=== PATIENT | female | born 2000 | race Caucasian/White ===

== ENCOUNTER 2020-05-28 11:23 | Inpatient (IN) | payer OTHER ==
[~2020-05-28] VITALS: Ht 172.7 cm; Wt 59.4 kg
--- NOTE | 2020-05-28 17:01 | PR ---
[facility] [address] [facility] [place], [place] [address] Signed Progress Notes IP Datetime Report Generated by CPN: 05/28/2020 17:01 PROGRESS NOTES: [id number] Impression: Normal Progression of Labor; Reassuring Heart Rate Procedures: Artificial ROM; Sterile Vag Exam Plan: Continue Present Management; Anticipate Vaginal Delivery Informed Consent Obtain: Vaginal Delivery VITAL SIGNS: [id number] Vital Signs: Reviewed; Within Normal Limits EXAM: [id number] Dilatation: 8.0 Effacement: 90 Station: 0 Contractions: q 3 minutes MEMBRANES: [id number] Comments: Pt seen and examined. Doing well. +FM. Contractions uncomfortable. Discussed AROM and AROM performed without any difficulty. Anticipate soon. Pt declines epidural FETUS A: [id number] FHR Baseline: 130 Variability: Moderate 6-25bpm Accelerations: 15X15 Decelerations: None FHR Category: Category I Presentation: Vertex Comments on Fetus A: No evidence of metabolic acidosis FETUS B: [id number] Signing Physician: Nelia Velasquez DO Copies: ~ *Electronically Signed* 05/28/20 3248 NELIA VELASQUEZ DO PATIENT NAME: VIRGILIO BLACK PROGRESS NOTE DATE OF : 89 PHYSICIAN: NELIA VELASQUEZ DO RPT #: [id number] REPORT IS CONFIDENTIAL AND NOT TO BE RELEASED WITHOUT AUTHORIZATION
[2020-05-28] MEDS ORDERED: BUPRENORPHINE HC8 MG (19:42)
[2020-05-28] MEDS ORDERED: IRON325 M1 (19:43)
[2020-05-28] MEDS ORDERED: ONDANSETRON ODT8 MG (19:43)
[2020-05-28] MEDS ORDERED: PROMETHAZINE12.5 M1 (19:43)
--- NOTE | 2020-05-29 08:32 | PR ---
[facility] [address] [facility] [place], [place] [address] Signed PP Progress Notes Datetime Report Generated by CPN: 05/29/2020 08:32 SUBJECTIVE: [id number] Pain: Within Normal Limits Nausea/Vomiting: Denies Flatus: Yes Bowel Movement: No Vital Signs: [id number] Vital Signs: Reviewed Cardiovascular: Normal Respiratory: Normal Abdomen/Uterus: Normal Lochia: Normal Vulva/Perineum: Not Done Breasts: Not Done CVA Tenderness: Normal Extremities: Normal Incision: Not Applicable Progress: Normal Exam Comments: Fundus firm U-2 nontender IMPRESSION/PLAN/PROCEDURES: [id number] Impression: Normal Progression Plan: Continue Present Management Progress Notes: Pt seen and examined. Doing well. Ambulating, voiding, and tolerating full diet. Pain and lochia minimal. No withdrawals on current buprenorphine dosing. No questions or concerns. Anticipate d/c to boarder status tomorrow. Signing Physician: Nelia Velasquez DO Copies: ~ *Electronically Signed* 05/29/20 0832 NELIA VELASQUEZ DO PATIENT NAME: VIRGILIO BLACK JOCELIN PROGRESS NOTE DATE OF : 99 PHYSICIAN: NELIA VELASQUEZ DO RPT #: [id number] REPORT IS CONFIDENTIAL AND NOT TO BE RELEASED WITHOUT AUTHORIZATION
--- NOTE | 2020-05-30 07:58 | PR ---
[facility] [address] [place], [place] [address] Signed PP Progress Notes Datetime Report Generated by CPN: 05/30/2020 07:58 SUBJECTIVE: [id number] Pain: Within Normal Limits Nausea/Vomiting: Denies Flatus: Yes Bowel Movement: No Vital Signs: [id number] Vital Signs: Reviewed; Within Normal Limits Cardiovascular: Normal Respiratory: Normal Abdomen/Uterus: Normal Lochia: Normal Vulva/Perineum: Not Done Breasts: Not Done CVA Tenderness: Normal Extremities: Normal Incision: Not Applicable Progress: Normal Exam Comments: Fundus firm U-2 nontender IMPRESSION/PLAN/PROCEDURES: [id number] Impression: Normal Progression Plan: Discharge Other Plans: To boarder status Other Procedures: Varicella Progress Notes: Pt seen and examined. Doing well. Ambulating, voiding, and tolerating full diet. Pain and lochia minimal. well. Desires d/c to boarder status. requires additional inpatient managment for abstinence. Pt unsure on pp contraception but considering LARCs. Agrees to varicella vaccination prior to discharge. Declines Rx for nicotine patches. All questions answered Signing Physician: Nelia Velasquez DO Copies: ~ *Electronically Signed* 05/30/20 0758 NELIA VELASQUEZ DO PATIENT NAME: VIRGILIO BLACK PROGRESS NOTE DATE OF : 99 PHYSICIAN: NELIA VELASQUEZ #: [id number] REPORT IS CONFIDENTIAL AND NOT TO BE RELEASED WITHOUT AUTHORIZATION
== END 2020-05-30 13:00 | disposition home or self-care (01) | DRG 806 ==
LOC: FBC 11:23
PROVIDERS: ADMIT Obstetrics & Gynecology; ATTEND Obstetrics & Gynecology
PROC: 10E0XZZ Delivery of Products of Conception, External Approach (ICD-10-PCS; principal; 2020-05-28)
PROC: 0UQMXZZ Repair Vulva, External Approach (ICD-10-PCS; 2020-05-28)
PROC: 10907ZC Drainage of Amniotic Fluid, Therapeutic from Products of Conception, Via Natural or Artificial Opening (ICD-10-PCS; 2020-05-28)
PROC: 3E0234Z Introduction of Serum, Toxoid and Vaccine into Muscle, Percutaneous Approach (ICD-10-PCS; 2020-05-30)
DX: O99.324 Drug use complicating childbirth (principal); F11.20 Opioid dependence, uncomplicated; Z37.0 Single live birth; O71.82 Other specified trauma to perineum and vulva; Z3A.38 38 weeks gestation of pregnancy; O69.81X0 Labor and delivery complicated by cord around neck, without compression, not applicable or unspecified; O99.334 Smoking (tobacco) complicating childbirth; F17.210 Nicotine dependence, cigarettes, uncomplicated; F12.90 Cannabis use, unspecified, uncomplicated; O99.02 Anemia complicating childbirth; D64.9 Anemia, unspecified; Z23 Encounter for immunization; Z14.1 Cystic fibrosis carrier; Z79.899 Other long term (current) drug therapy
CPT/HCPCS: 85027; 90716; A9270; J2590